=== PATIENT | male | born 1975 | race Caucasian/White ===

== ENCOUNTER 2017-11-20 15:01 | Emergency (ER) | payer OTHER ==
[~2017-11-20] VITALS: Ht 170.2 cm; Wt 83.0 kg
[2017-11-20 15:17] VITALS: BP 163/112; Ht 170.2 cm; Wt 83.0 kg
== END 2017-11-20 17:37 | disposition left against medical advice (07) ==
LOC: ED 15:01
DX: Z53.21 Procedure and treatment not carried out due to patient leaving prior to being seen by health care provider (principal)